=== PATIENT | male | born 1955 | race Two or more races ===

== ENCOUNTER 2018-10-27 13:24 | Inpatient (IN) | payer MEDICARE, MEDICAID ==
[~2018-10-27] VITALS: Ht 172.7 cm; Wt 92.8 kg
[2018-10-27] MEDS ORDERED: SODIUM CHLORIDE 0.9% 1,000 ML IV ONE ×3 (13:49→17:45)
[2018-10-27] MEDS ORDERED: PIPERACILLIN/TAZ 3.375G PREMIX 50 ML IV ONE (16:00)
[2018-10-27] MEDS ORDERED: VANCOMYCIN 1 G PREMIX 200 ML IV ONE (16:00)
[2018-10-27 16:02] LABS: HEMATOCRIT. 29.6 % (42.0-52.0); MEAN CORPUSCULAR HEMOGLOBIN 32.9 pg (28.0-32.0); MEAN CORPUSCULAR VOLUME 97.8 fL (80.0-94.0); MEAN PLATELET VOLUME 8.4 fl (7.4-10.4); PLATELET 331 x1000/uL (130-400); RED BLOOD CELL COUNT 3.03 mill/uL (4.7-6.1); RED CELL DISTRIBUTION WIDTH 13.3 % (11.6-14.6)
[2018-10-27 16:55] LABS: INR 1.1; PROTHROMBIN TIME 11.5 sec (9.6-11.0)
[2018-10-27 16:57] LABS: CLARITY URINE CLEAR (CLEAR); COLOR URINE YELLOW (YELLOW); KETONES URINE 4+ (NEGATIVE); LEUKOCYTE ESTERASE URINE TRACE (NEGATIVE); NITRITE URINE NEGATIVE (NEGATIVE); OCCULT BLOOD URINE 1+ (NEGATIVE); PROTEIN URINE 1+ (NEGATIVE); SPECIFIC GRAVITY URINE 1.025 (1.005-1.030)
[2018-10-27 17:07] LABS: *AMPHETAMINES SCREEN URINE NEGATIVE (NEGATIVE); *BARBITURATES SCREEN URINE NEGATIVE (NEGATIVE); CANNABINOID URINE SCREEN NEGATIVE (NEGATIVE)
[2018-10-27 17:08] LABS: *BENZODIAZEPINES SCREEN URINE NEGATIVE (NEGATIVE); *COCAINE SCREEN URINE NEGATIVE (NEGATIVE); METHADONE URINE SCREEN NEGATIVE (NEGATIVE); OPIATES URINE SCREEN NEGATIVE (NEGATIVE); PHENCYCLIDINE URINE SCREEN NEGATIVE (NEGATIVE)
[2018-10-27 17:16] LABS: CHLORIDE 96 mEq/L (98-107)
[2018-10-27 17:21] LABS: ETHANOL BLOOD < 10 mg/dL
[2018-10-27 17:23] LABS: PLATELET ESTIMATE NORMAL
[2018-10-27 17:23] LABS: BETA HYDROXYBUTYRATE 8.9 mMol/L (0.0-0.3)
[2018-10-27] MEDS ORDERED: POTASSIUM CHLORIDE 20MEQ TABLET SR PO ONE (17:45)
[2018-10-27] MEDS ORDERED: INSULIN REGULAR (DRIP) 100 UNITS in SODIUM CHLORIDE 0.9% 100 ML IV ONE ×3 (17:45→18:45)
[2018-10-27 17:57] LABS: BG BASE EXCESS -16.8 mmol/L (-2.0-2.0); BG CARBOXYHEMOGLOBIN 0.3 % (0.5-1.5); BG DEOXYHEMOGLOBIN 2.6 % (0.0-5.0); BG FRACTION INSPIRED OXYGEN 21; BG HCO3 ACT 7.6 mmol/L (22.0-26.0); BG METHEMOGLOBIN 0.3 % (0.0-1.5); BG OXYGEN SATURATION 97.4 % (92.0-98.5); BG OXYHEMOGLOBIN 96.8 % (94.0-97.0); BG PCO2 15.9 mmHg (35.0-45.0); BG PH 7.295 (7.350-7.450); BG PO2 109.6 mmHg (75.0-100.0); BG SAMPLE SITE RIGHT BRACHIAL; BG TOTAL HEMOGLOBIN 10.4 g/dL (12.0-18.0); BG VENT MODE ROOM AIR
[2018-10-27] MEDS ORDERED: DIPHENHYDRAMINE 50MG/ML VIAL IV PRN (18:45)
[2018-10-27] MEDS ORDERED: ONDANSETRON HCL 4MG/2ML INJ IV PRN (18:45)
[2018-10-27] MEDS ORDERED: MAGNESIUM/ALUMINUM HYDROXIDE/SIMETHICONE 30ML UDC PO PRN (18:45)
[2018-10-27] MEDS ORDERED: VANCOMYCIN 1 G PREMIX 200 ML IV SCH (18:45)
[2018-10-27 19:10] LABS: PHOSPHORUS 1.6 mg/dL (2.5-4.9)
[2018-10-27 21:36] VITALS: BP 130/61
[2018-10-27] MEDS ORDERED: POTASSIUM CHLORIDE 20MEQ TABLET SR PO NR (21:42)
[2018-10-27] MEDS ORDERED: INSULIN REGULAR (DRIP) 100 UNITS in SODIUM CHLORIDE 0.9% 99 ML IV PRN (21:45)
[2018-10-27] MEDS ORDERED: DEXTROSE 50% WATER 50ML SYRINGE IV PRN ×2 (21:45)
[2018-10-27 22:00] VITALS: BP_SYST 130; BP_SYST 139; BP_DIAS 40; BP_DIAS 61
[2018-10-27] MEDS ORDERED: INSULIN REGULAR (DRIP) 100 UNITS in SODIUM CHLORIDE 0.9% 100 ML IV SCH (22:00)
[2018-10-27] MEDS: BLOOD SUGAR DIAGNOSTIC STRIP TEST SCH ×2 (22:15→23:00)
[2018-10-27] MEDS: FAMOTIDINE 20MG/2ML VIAL IV SCH (22:26)
[2018-10-27] MEDS: SODIUM CHLORIDE 0.9% 1,000 ML IV SCH (22:27)
[2018-10-27] MEDS: PIPERACILLIN/TAZ 3.375G PREMIX 50 ML IV SCH (22:27)
[2018-10-27 22:30] VITALS: BP 128/37
[2018-10-27 23:00] VITALS: BP 156/59
[2018-10-27] MEDS ORDERED: VANCOMYCIN 1500MG in DEXTROSE 5% WATER 250ML IV NR (23:00)
[2018-10-27 23:30] VITALS: BP 145/54
[2018-10-28] VITALS (35 sets, daily range): BP systolic 75–188; BP diastolic 22–77
[2018-10-28] MEDS: BLOOD SUGAR DIAGNOSTIC STRIP TEST SCH ×13 (00:05→20:22)
[2018-10-28 04:39] LABS: HEMATOCRIT. 28.8 % (42.0-52.0); HEMOGLOBIN. 10.1 g/dL (14.0-18.0); MEAN CORPUSCULAR HEMOGLOBIN 32.6 pg (28.0-32.0); MEAN CORPUSCULAR VOLUME 92.8 fL (80.0-94.0); MEAN PLATELET VOLUME 7.6 fl (7.4-10.4); PLATELET 325 x1000/uL (130-400); RED CELL DISTRIBUTION WIDTH 13.4 % (11.6-14.6)
[2018-10-28 06:20] LABS: CHLORIDE 104 mEq/L (98-107)
[2018-10-28] MEDS: PIPERACILLIN/TAZ 3.375G PREMIX 50 ML IV SCH ×2 (06:21→13:42)
[2018-10-28 06:47] LABS: PHOSPHORUS 0.5 mg/dL (2.5-4.9)
[2018-10-28] MEDS ORDERED: POTASSIUM CHLORIDE 20MEQ TABLET SR PO SCH (08:00)
[2018-10-28] MEDS: FAMOTIDINE 20MG/2ML VIAL IV SCH ×2 (08:35→20:17)
[2018-10-28] MEDS: ENOXAPARIN 40MG/0.4ML SYR SUBCUT SCH (08:35)
[2018-10-28] MEDS ORDERED: POTASSIUM PHOS,M-BASIC-D-BASIC 30 MMOL in SODIUM CHLORIDE 0.9% 500 ML IV SCH (09:00)
[2018-10-28] MEDS: VANCOMYCIN 1 G PREMIX 200 ML IV SCH ×2 (11:08→17:45)
[2018-10-28] MEDS ORDERED: DEXTROSE 50% WATER 50ML SYRINGE IV PRN (11:45)
[2018-10-28] MEDS: SODIUM CHLORIDE 0.9% 1,000 ML IV SCH ×2 (12:43→17:46)
[2018-10-28] MEDS: INSULIN GLARGINE UD 100 UNITS/ML SYR SUBCUT SCH (12:43)
[2018-10-28] MEDS: INSULIN LISPRO 100 UNITS/ML SUBCUT SCH ×3 (12:44→21:31)
[2018-10-28] MEDS ORDERED: POTASSIUM CHLORIDE 20MEQ TABLET SR PO NR (14:00)
[2018-10-28 14:31] LABS: PLATELET ESTIMATE NORMAL
[2018-10-28] MEDS ORDERED: HYDROMORPHONE HCL/PF 2MG/ML CPJ IV PRN (15:45)
[2018-10-28] MEDS: ACETAMINOPHEN 325MG TABLET PO PRN (16:50)
[2018-10-29] VITALS (27 sets, daily range): BP systolic 77–144; BP diastolic 22–96
[2018-10-29] MEDS: PIPERACILLIN/TAZ 3.375G PREMIX 50 ML IV SCH ×5 (00:37→22:46)
[2018-10-29] MEDS: ACETAMINOPHEN 325MG TABLET PO PRN ×2 (00:40→14:53)
[2018-10-29] MEDS: SODIUM CHLORIDE 0.9% 1,000 ML IV SCH ×2 (01:24→22:49)
[2018-10-29] MEDS: VANCOMYCIN 1 G PREMIX 200 ML IV SCH ×3 (02:45→18:30)
[2018-10-29 05:48] LABS: HEMATOCRIT. 28.1 % (42.0-52.0); HEMOGLOBIN. 9.8 g/dL (14.0-18.0); MEAN CORPUSCULAR VOLUME 94.4 fL (80.0-94.0); MEAN PLATELET VOLUME 7.9 fl (7.4-10.4); PLATELET 290 x1000/uL (130-400); RED BLOOD CELL COUNT 2.98 mill/uL (4.7-6.1); RED CELL DISTRIBUTION WIDTH 13.7 % (11.6-14.6)
[2018-10-29] MEDS: BLOOD SUGAR DIAGNOSTIC STRIP TEST SCH ×4 (06:30→20:19)
[2018-10-29] MEDS: INSULIN LISPRO 100 UNITS/ML SUBCUT SCH ×4 (07:20→20:40)
[2018-10-29 08:06] LABS: CHLORIDE 105 mEq/L (98-107)
[2018-10-29 08:30] LABS: PHOSPHORUS 1.6 mg/dL (2.5-4.9)
[2018-10-29] MEDS: FAMOTIDINE 20MG/2ML VIAL IV SCH ×2 (09:00→20:40)
[2018-10-29] MEDS: POTASSIUM CHLORIDE 20MEQ TABLET SR PO SCH ×2 (10:15→11:02)
[2018-10-29] MEDS: ENOXAPARIN 40MG/0.4ML SYR SUBCUT SCH (11:01)
[2018-10-29] MEDS: INSULIN GLARGINE UD 100 UNITS/ML SYR SUBCUT SCH (11:03)
[2018-10-29] MEDS ORDERED: POTASSIUM PHOS,M-BASIC-D-BASIC 30 MMOL in DEXT 5% WATER 500 ML IV SCH (11:30)
[2018-10-29 12:03] LABS: HEPATITIS B SURFACE AB < 3.1 mIU/mL
[2018-10-29 12:13] LABS: HEPATITIS B SURFACE ANTIGEN NEGATIVE
[2018-10-29] MEDS: HYDROCODONE/ACETAMINOPHEN 10/325MG TABLET PO PRN (14:44)
[2018-10-30] VITALS (15 sets, daily range): BP systolic 86–141; BP diastolic 23–85
[2018-10-30] MEDS: SODIUM CHLORIDE 0.9% 1,000 ML IV SCH ×3 (01:06→17:33)
[2018-10-30] MEDS: VANCOMYCIN 1 G PREMIX 200 ML IV SCH ×3 (02:04→17:32)
[2018-10-30] MEDS: PIPERACILLIN/TAZ 3.375G PREMIX 50 ML IV SCH ×3 (05:34→21:26)
[2018-10-30 06:15] LABS: HEPATITIS B CORE ANTIBODY Negative (Negative); HIV SCREEN 4G Non Reactive (Non Reactive)
[2018-10-30] MEDS: BLOOD SUGAR DIAGNOSTIC STRIP TEST SCH ×4 (06:54→21:26)
[2018-10-30 06:57] LABS: HEMATOCRIT. 28.5 % (42.0-52.0); HEMOGLOBIN. 9.7 g/dL (14.0-18.0); MEAN CORPUSCULAR HEMOGLOBIN 32.3 pg (28.0-32.0); MEAN PLATELET VOLUME 8.3 fl (7.4-10.4); PLATELET 251 x1000/uL (130-400); RED CELL DISTRIBUTION WIDTH 13.9 % (11.6-14.6)
[2018-10-30] MEDS: INSULIN LISPRO 100 UNITS/ML SUBCUT SCH ×4 (07:20→21:45)
[2018-10-30 07:46] LABS: CHLORIDE 104 mEq/L (98-107)
[2018-10-30 07:56] LABS: PLATELET ESTIMATE NORMAL
[2018-10-30 07:58] LABS: PHOSPHORUS 2.2 mg/dL (2.5-4.9)
[2018-10-30] MEDS: FAMOTIDINE 20MG/2ML VIAL IV SCH ×2 (08:04→21:26)
[2018-10-30] MEDS: ENOXAPARIN 40MG/0.4ML SYR SUBCUT SCH (08:05)
[2018-10-30] MEDS: INSULIN GLARGINE UD 100 UNITS/ML SYR SUBCUT SCH (10:02)
[2018-10-30] MEDS ORDERED: VANCOMYCIN HCL 500 MG/VIAL ONE (10:43)
[2018-10-30] MEDS ORDERED: BUPIVACAINE HCL/EPINEPHRINE 0.5%/0.0005 30ML ONE (10:54)
[2018-10-30] MEDS ORDERED: BUPIVACAINE/EPINEPH/PF 0.25%/0.0005 10ML ONE (10:56)
[2018-10-30] MEDS ORDERED: PROPOFOL 200MG/20ML VIAL IV ONE (11:18)
[2018-10-30] MEDS ORDERED: FENTANYL CITRATE/PF 50MCG/ML 2ML VIAL ONE (11:18)
[2018-10-30] MEDS ORDERED: MIDAZOLAM HCL 2 MG/2 ML VIAL ONE (11:19)
[2018-10-30] MEDS ORDERED: POTASSIUM PHOS,M-BASIC-D-BASIC 20 MMOL in DEXT 5% WATER 243.3333 ML IV NR (12:00)
[2018-10-30] MEDS ORDERED: METOCLOPRAMIDE HCL 10MG/2ML VIAL ONE (12:32)
[2018-10-30] MEDS ORDERED: ONDANSETRON HCL 4MG/2ML INJ ONE (12:32)
[2018-10-30] MEDS ORDERED: LIDOCAINE HCL/PF 1% 10 MG/ML 5ML VIAL ONE (12:32)
[2018-10-30] MEDS ORDERED: KETOROLAC 30MG/ML VIAL ONE (12:37)
[2018-10-30] MEDS ORDERED: ALBUMIN HUMAN 12.5G/250ML (5%) IV ONE (12:53)
[2018-10-30] MEDS: NYSTATIN POWDER 15GM TOP SCH ×2 (13:00→16:26)
[2018-10-30 13:28] LABS: HEMOGLOBIN 8.1 g/dL (14.0-18.0); MEAN CORPUSCULAR HEMOGLOBIN 32.2 pg (28.0-32.0); PLATELET 221 x1000/uL (130-400); RED BLOOD CELL COUNT 2.52 mill/uL (4.7-6.1)
[2018-10-30] MEDS ORDERED: HYDROMORPHONE HCL/PF 2MG/ML CPJ IV PRN (13:45)
[2018-10-30] MEDS ORDERED: MEPERIDINE HCL/PF 25MG/ML CPJ IV PRN (13:45)
[2018-10-30 19:36] LABS: INR 1.1; PROTHROMBIN TIME 11.3 sec (9.6-11.0)
[2018-10-30 19:40] LABS: HEMOGLOBIN 8.1 g/dL (14.0-18.0)
[2018-10-31] VITALS (13 sets, daily range): BP systolic 95–145; BP diastolic 17–70
[2018-10-31] MEDS: VANCOMYCIN 1 G PREMIX 200 ML IV SCH ×2 (02:00→09:35)
[2018-10-31] MEDS: SODIUM CHLORIDE 0.9% 1,000 ML IV SCH ×2 (02:00→12:06)
[2018-10-31] MEDS: PIPERACILLIN/TAZ 3.375G PREMIX 50 ML IV SCH ×2 (06:42→13:28)
[2018-10-31] MEDS: BLOOD SUGAR DIAGNOSTIC STRIP TEST SCH ×4 (06:42→20:47)
[2018-10-31] MEDS: HYDROCODONE/ACETAMINOPHEN 10/325MG TABLET PO PRN ×3 (06:52→23:34)
[2018-10-31] MEDS: INSULIN LISPRO 100 UNITS/ML SUBCUT SCH ×4 (06:52→20:53)
[2018-10-31] MEDS: FAMOTIDINE 20MG/2ML VIAL IV SCH (08:16)
[2018-10-31] MEDS: NYSTATIN POWDER 15GM TOP SCH ×3 (08:16→15:59)
[2018-10-31] MEDS: ENOXAPARIN 40MG/0.4ML SYR SUBCUT SCH (09:00)
[2018-10-31] MEDS: INSULIN GLARGINE UD 100 UNITS/ML SYR SUBCUT SCH (11:09)
[2018-10-31] MEDS: CEFTRIAXONE 2 G in DEXTROSE 5% WATER 50 ML IV SCH (15:17)
[2018-10-31] MEDS: FAMOTIDINE 20MG TABLET PO SCH (20:52)
[2018-11-01] VITALS: BP 143/97
[2018-11-01 01:32] VITALS: BP 103/56
[2018-11-01 04:00] VITALS: BP 110/64
[2018-11-01] MEDS: BLOOD SUGAR DIAGNOSTIC STRIP TEST SCH ×4 (06:30→19:57)
[2018-11-01 07:43] LABS: HEMATOCRIT 23.8 % (42.0-52.0); HEMOGLOBIN 8.2 g/dL (14.0-18.0); MEAN CORPUSCULAR HEMOGLOBIN 32.1 pg (28.0-32.0); MEAN CORPUSCULAR VOLUME 93.3 fL (80.0-94.0); PLATELET 273 x1000/uL (130-400); RED BLOOD CELL COUNT 2.55 mill/uL (4.7-6.1); RED CELL DISTRIBUTION WIDTH 15.7 % (11.6-14.6)
[2018-11-01] MEDS: INSULIN LISPRO 100 UNITS/ML SUBCUT SCH ×4 (07:50→20:33)
[2018-11-01 08:00] VITALS: BP 149/55
[2018-11-01] MEDS: FAMOTIDINE 20MG TABLET PO SCH ×2 (09:08→20:33)
[2018-11-01] MEDS: ENOXAPARIN 40MG/0.4ML SYR SUBCUT SCH (09:09)
[2018-11-01] MEDS: NYSTATIN POWDER 15GM TOP SCH ×3 (09:27→17:38)
[2018-11-01] MEDS: HYDROCODONE/ACETAMINOPHEN 10/325MG TABLET PO PRN ×2 (09:27→19:52)
[2018-11-01] MEDS ORDERED: VANCOMYCIN 1500MG in DEXTROSE 5% WATER 250ML IV SCH (10:00)
[2018-11-01] MEDS: CEFTRIAXONE 2 G in DEXTROSE 5% WATER 50 ML IV SCH (11:48)
[2018-11-01 12:00] VITALS: BP 135/50
[2018-11-01] MEDS: INSULIN GLARGINE UD 100 UNITS/ML SYR SUBCUT SCH (13:24)
[2018-11-01] MEDS: CLONIDINE 0.1MG TABLET PO PRN (19:52)
[2018-11-01 20:00] VITALS: BP 171/56
[2018-11-01] MEDS: DOCUSATE SODIUM 100MG CAPSULE PO SCH (22:20)
[2018-11-02] VITALS: BP 128/51
[2018-11-02 04:00] VITALS: BP 130/58
[2018-11-02] MEDS: HYDROCODONE/ACETAMINOPHEN 10/325MG TABLET PO PRN ×3 (05:08→23:04)
[2018-11-02] MEDS: BLOOD SUGAR DIAGNOSTIC STRIP TEST SCH ×4 (06:18→21:46)
[2018-11-02] MEDS: INSULIN LISPRO 100 UNITS/ML SUBCUT SCH ×4 (07:50→23:00)
[2018-11-02 08:00] VITALS: BP 103/43
[2018-11-02] MEDS: CEFTRIAXONE 2 G in DEXTROSE 5% WATER 50 ML IV SCH (09:14)
[2018-11-02] MEDS: FAMOTIDINE 20MG TABLET PO SCH ×2 (09:27→21:46)
[2018-11-02] MEDS: ENOXAPARIN 40MG/0.4ML SYR SUBCUT SCH (09:27)
[2018-11-02] MEDS: DOCUSATE SODIUM 100MG CAPSULE PO SCH ×2 (09:28→21:00)
[2018-11-02] MEDS: NYSTATIN POWDER 15GM TOP SCH ×3 (09:33→17:00)
[2018-11-02] MEDS: INSULIN GLARGINE UD 100 UNITS/ML SYR SUBCUT SCH (10:00)
[2018-11-02 12:00] VITALS: BP 127/43
[2018-11-02 16:00] VITALS: BP 155/60
[2018-11-02 20:00] VITALS: BP 168/53
[2018-11-02] MEDS: CLONIDINE 0.1MG TABLET PO PRN (21:46)
[2018-11-03] VITALS: BP 163/56
[2018-11-03] MEDS: CLONIDINE 0.1MG TABLET PO PRN (03:45)
[2018-11-03 04:00] VITALS: BP 186/56
[2018-11-03 08:00] VITALS: BP 116/40
[2018-11-03] MEDS: BLOOD SUGAR DIAGNOSTIC STRIP TEST SCH ×4 (08:07→20:13)
[2018-11-03] MEDS: NYSTATIN POWDER 15GM TOP SCH ×3 (08:50→17:06)
[2018-11-03] MEDS: CEFTRIAXONE 2 G in DEXTROSE 5% WATER 50 ML IV SCH (08:50)
[2018-11-03] MEDS: INSULIN LISPRO 100 UNITS/ML SUBCUT SCH ×4 (08:51→20:20)
[2018-11-03] MEDS: DOCUSATE SODIUM 100MG CAPSULE PO SCH ×2 (08:53→20:09)
[2018-11-03] MEDS: FAMOTIDINE 20MG TABLET PO SCH ×2 (08:53→20:09)
[2018-11-03] MEDS: ENOXAPARIN 40MG/0.4ML SYR SUBCUT SCH (08:56)
[2018-11-03] MEDS: INSULIN GLARGINE UD 100 UNITS/ML SYR SUBCUT SCH (10:00)
[2018-11-03 12:29] VITALS: BP 103/79
[2018-11-03 15:56] VITALS: BP 135/64
[2018-11-03] MEDS: HYDROCODONE/ACETAMINOPHEN 10/325MG TABLET PO PRN (17:06)
[2018-11-03 20:00] VITALS: BP 160/55
[2018-11-04] VITALS: BP 154/54
[2018-11-04] MEDS: HYDROCODONE/ACETAMINOPHEN 10/325MG TABLET PO PRN ×3 (03:28→22:36)
[2018-11-04 04:00] VITALS: BP 192/42
[2018-11-04] MEDS: BLOOD SUGAR DIAGNOSTIC STRIP TEST SCH ×4 (06:32→20:27)
[2018-11-04] MEDS: INSULIN LISPRO 100 UNITS/ML SUBCUT SCH ×4 (06:35→20:32)
[2018-11-04 08:00] VITALS: BP_SYST 121; BP_SYST 196; BP_DIAS 29; BP_DIAS 35
[2018-11-04] MEDS: CEFTRIAXONE 2 G in DEXTROSE 5% WATER 50 ML IV SCH (09:15)
[2018-11-04] MEDS: NYSTATIN POWDER 15GM TOP SCH ×3 (09:17→17:26)
[2018-11-04] MEDS: INSULIN GLARGINE UD 100 UNITS/ML SYR SUBCUT SCH (09:17)
[2018-11-04] MEDS: FAMOTIDINE 20MG TABLET PO SCH ×2 (09:18→20:23)
[2018-11-04] MEDS: DOCUSATE SODIUM 100MG CAPSULE PO SCH ×2 (09:18→20:23)
[2018-11-04] MEDS: ENOXAPARIN 40MG/0.4ML SYR SUBCUT SCH (09:19)
[2018-11-04] MEDS ORDERED: INSULIN GLARGINE UD 100 UNITS/ML SYR SUBCUT SCH (12:00)
[2018-11-04 20:00] VITALS: BP 163/57
[2018-11-05] VITALS: BP 111/70
[2018-11-05 04:00] VITALS: BP 139/54
[2018-11-05] MEDS: BLOOD SUGAR DIAGNOSTIC STRIP TEST SCH ×4 (06:31→21:00)
[2018-11-05 08:00] VITALS: BP 170/58
[2018-11-05] MEDS: INSULIN LISPRO 100 UNITS/ML SUBCUT SCH ×4 (08:09→21:59)
[2018-11-05] MEDS: CEFTRIAXONE 2 G in DEXTROSE 5% WATER 50 ML IV SCH (08:35)
[2018-11-05] MEDS: NYSTATIN POWDER 15GM TOP SCH ×3 (08:35→17:00)
[2018-11-05] MEDS: ENOXAPARIN 40MG/0.4ML SYR SUBCUT SCH (08:35)
[2018-11-05] MEDS: DOCUSATE SODIUM 100MG CAPSULE PO SCH ×2 (08:35→21:48)
[2018-11-05] MEDS: FAMOTIDINE 20MG TABLET PO SCH ×2 (08:35→21:48)
[2018-11-05] MEDS: INSULIN GLARGINE UD 100 UNITS/ML SYR SUBCUT SCH (10:38)
[2018-11-05 12:00] VITALS: BP 134/57
[2018-11-05 16:00] VITALS: BP 115/66
[2018-11-05] MEDS: HYDROCODONE/ACETAMINOPHEN 10/325MG TABLET PO PRN (18:43)
[2018-11-05 20:00] VITALS: BP 168/60
[2018-11-05] MEDS: ACETAMINOPHEN 325MG TABLET PO PRN (22:07)
[2018-11-06] VITALS: BP 149/54
[2018-11-06 04:00] VITALS: BP 165/58
[2018-11-06 06:06] LABS: BASOPHILS % 0.9 % (0.0-2.0); EOSINOPHILS % 0.6 % (0.0-5.0); HEMATOCRIT. 23.2 % (42.0-52.0); HEMOGLOBIN. 7.9 g/dL (14.0-18.0); LYMPHOCYTES % 20.3 % (20.0-50.0); MEAN CORPUSCULAR HEMOGLOBIN 31.6 pg (28.0-32.0); MEAN CORPUSCULAR VOLUME 92.4 fL (80.0-94.0); MONOCYTES % 8.9 % (2.0-8.0); NEUTROPHILS % 69.3 % (40.0-76.0); PLATELET 511 x1000/uL (130-400); RED BLOOD CELL COUNT 2.51 mill/uL (4.7-6.1); RED CELL DISTRIBUTION WIDTH 15.6 % (11.6-14.6)
[2018-11-06] MEDS: CLONIDINE 0.1MG TABLET PO PRN ×2 (06:39→09:28)
[2018-11-06] MEDS: INSULIN LISPRO 100 UNITS/ML SUBCUT SCH ×2 (07:50→13:18)
[2018-11-06 08:00] VITALS: BP 167/55
[2018-11-06] MEDS: BLOOD SUGAR DIAGNOSTIC STRIP TEST SCH ×2 (08:03→13:14)
[2018-11-06] MEDS: DOCUSATE SODIUM 100MG CAPSULE PO SCH (09:28)
[2018-11-06] MEDS: FAMOTIDINE 20MG TABLET PO SCH (09:28)
[2018-11-06] MEDS: ENOXAPARIN 40MG/0.4ML SYR SUBCUT SCH (09:29)
[2018-11-06] MEDS: NYSTATIN POWDER 15GM TOP SCH (09:32)
[2018-11-06] MEDS: CEFTRIAXONE 2 G in DEXTROSE 5% WATER 50 ML IV SCH (09:34)
[2018-11-06] MEDS: HYDROCODONE/ACETAMINOPHEN 10/325MG TABLET PO PRN (09:35)
[2018-11-06] MEDS: INSULIN GLARGINE UD 100 UNITS/ML SYR SUBCUT SCH (11:25)
[2018-11-06] MEDS ORDERED: CEPHALEXIN 250MG CAPSULE PO SCH (12:00)
[2018-11-06 13:25] VITALS: BP 130/47
== END 2018-11-06 14:01 | DRG 853 ==
LOC: ER 13:24 → MICUSO 17:44 → EDBEDREQ 17:47 → EDBEDREQSVC 17:47 → ENRESERV 20:39 → 6EST 10-28 16:10 → 3WST 10-28 22:21 → 6EST 11-01 01:55
PROVIDERS: ADMIT Internal Medicine; ATTEND Internal Medicine
PROC: 0Y6H0Z3 Detachment at Right Lower Leg, Low, Open Approach (ICD-10-PCS; principal; 2018-10-30)
PROC: 30233N1 Transfusion of Nonautologous Red Blood Cells into Peripheral Vein, Percutaneous Approach (ICD-10-PCS; 2018-10-30)
DX: A40.1 Sepsis due to streptococcus, group B (principal); E11.10 Type 2 diabetes mellitus with ketoacidosis without coma; A48.0 Gas gangrene; L03.115 Cellulitis of right lower limb; E11.52 Type 2 diabetes mellitus with diabetic peripheral angiopathy with gangrene; E87.2 Acidosis; E87.6 Hypokalemia; D63.8 Anemia in other chronic diseases classified elsewhere; L30.4 Erythema intertrigo; Z60.2 Problems related to living alone; B87.9 Myiasis, unspecified; F10.10 Alcohol abuse, uncomplicated; I10 Essential (primary) hypertension; Z83.3 Family history of diabetes mellitus; Z91.14 Patient's other noncompliance with medication regimen; Z89.512 Acquired absence of left leg below knee
CPT/HCPCS: 36415; 36600; 71045; 73630; 80048; 80202; 80305; 80320; 82010; 82375; 82805; 82962; 83735; 84100; 84134; 85014; 85018; 85027; 85049; 85384; 86850; 86900; 86920; 87077; 87186; 87389; 88311; 93005; 93306; 93923; 99291; A6261; C1893; J0171; J0696; J1170; J1650; J1815; J1885; J2250; J2405; J2543; J2704; J2765; J3010; J3370; J3490; J7030; J7040; J7050; J7060; P9016; P9041; G0480

== ENCOUNTER 2024-07-01 12:12 | Emergency (ER) | payer MEDICARE, MEDICAID ==
[~2024-07-01] VITALS: Ht 162.6 cm; Wt 72.0 kg
[2024-07-01 12:14] VITALS: TEMP 98
[2024-07-01 12:36] VITALS: O2SAT 99
[2024-07-01 13:27] VITALS: BP 158/76; PULSE 94; RESP 17; O2SAT 96
== END 2024-07-01 17:16 | disposition home or self-care (01) ==
LOC: ER 12:12
DX: E11.649 Type 2 diabetes mellitus with hypoglycemia without coma (principal); T38.3X5A Adverse effect of insulin and oral hypoglycemic [antidiabetic] drugs, initial encounter; Y92.89 Other specified places as the place of occurrence of the external cause
CPT/HCPCS: 99283